=== PATIENT | male | born 1970 | race Caucasian/White ===

== ENCOUNTER 2019-01-21 22:59 | Emergency (ER) | payer BC ==
[~2019-01-21] VITALS: Ht 172.7 cm; Wt 75.7 kg
[2019-01-21 23:35] VITALS: Ht 172.7 cm; Wt 75.7 kg
[2019-01-22 03:25] VITALS: BP 108/66
== END 2019-01-22 03:25 | disposition home or self-care (01) ==
LOC: ED 22:59
DX: B34.9 Viral infection, unspecified (principal); J40 Bronchitis, not specified as acute or chronic; K21.9 Gastro-esophageal reflux disease without esophagitis
CPT/HCPCS: 87804; Q0162